=== PATIENT | male | born 1955 | race Two or more races ===

== ENCOUNTER 2017-05-24 06:23 | Day surgery (SDC) | payer OTHER ==
[~2017-05-24] VITALS: Ht 172.7 cm; Wt 69.1 kg
[~2017-05-24 06:23] MED LIST: ALBUTEROL SULFATE 2.5 MG/0.5 ML NEB SOLUTION NEB ONE; BENZOCAINE 20% 50 MCG/SPRAY 57 GM TP ONE; LIDOCAINE HCL 2% 30 ML JELLY TP ONE; LIDOCAINE HCL 4% 50 ML SOLUTION TP ONE
[2017-05-24] MEDS ORDERED: SODIUM CHLORIDE 0.9% 1,000 ML IV ONE ×2 (06:30→06:41)
[2017-05-24] MEDS ORDERED: FentaNYL CITRATE-PF 100 MCG/2 ML VIAL ONE (07:20)
[2017-05-24] MEDS ORDERED: MIDAZOLAM HCL 2 MG/2 ML VIAL ONE (07:20)
[2017-05-24] MEDS ORDERED: TAMS0.4C32 PO (07:22)
[2017-05-24] MEDS ORDERED: CYAN10009 PO (07:22)
[2017-05-24] MEDS ORDERED: LORA10TA7 PO (07:22)
[2017-05-24] MEDS ORDERED: DIVA250T45 PO (07:22)
[2017-05-24] MEDS ORDERED: ALBU8.5H IH (07:22)
[2017-05-24] MEDS ORDERED: PRED20 PO (07:22)
[2017-05-24] MEDS ORDERED: ZOLP5 PO (07:22)
[2017-05-24] MEDS ORDERED: BECL8.7A6 IH (07:22)
[2017-05-24] MEDS ORDERED: LISI-662 PO (07:22)
[2017-05-24 07:41] LABS: GLUCOSE,POINT OF CARE 96 MG/DL (70-110)
[2017-05-24] MEDS ORDERED: MethylPREDNISolone SOD SUCC 125 MG/2 ML VIAL IVP ONE (09:15)
[2017-05-24] MEDS ORDERED: MethylPREDNISolone SOD SUCC 125 MG/2 ML VIAL ONE (09:39)
[2017-05-24] MEDS ORDERED: OXYGEN THERAPY IH SCH (20:00)
== END 2017-05-24 10:45 | disposition home or self-care (01) ==
LOC: SURGERY 06:23 → EDSEX 09:15 → SURGERY 10:45
PROVIDERS: ATTEND Internal Medicine Critical Care Medicine
DX: J38.4 Edema of larynx (principal); B37.0 Candidal stomatitis; Z79.899 Other long term (current) drug therapy
CPT/HCPCS: 31623; 31624; 71010; 82962; 87015 ×2; 87070; 87101; 87205; 87220; 88108; 88312; 94640; J2250; J2930; J3010; J7030